=== PATIENT | female | born 1995 | race American Indian/Alaskan Native ===

== ENCOUNTER 2018-12-05 19:08 | Outpatient (CLI) | payer OTHER ==
[2018-12-05] MEDS ORDERED: LACTATED RINGERS 1,000 ML IV ONE (19:51)
[2018-12-05] MEDS ORDERED: ZOFRAN IV ONE (19:52)
[2018-12-05 20:22] LABS: Bilirubin,Urine NEG (Negative); Blood,Urine NEG (Negative); Color,Urine Yellow (Yellow); Mucus,Urine 3+ /HPF
[2018-12-05 21:56] VITALS: BP 117/71
[2018-12-05] MEDS ORDERED: VALTREX PO ONE (22:35)
== END 2018-12-05 22:25 | disposition home or self-care (01) ==
LOC: TRG 19:08
PROVIDERS: ATTEND Obstetrics & Gynecology
DX: O26.893 Other specified pregnancy related conditions, third trimester (principal); O21.8 Other vomiting complicating pregnancy; N89.8 Other specified noninflammatory disorders of vagina; M54.5 Low back pain; Z3A.31 31 weeks gestation of pregnancy
CPT/HCPCS: 81001; 87086; 87529; 96360; J2405; J7120

== ENCOUNTER 2021-01-28 13:04 | Outpatient (CLI) | payer OTHER ==
[2021-01-28] MEDS ORDERED: LACTATED RINGERS 1,000 ML IV ONE ×2 (14:07→15:08)
[2021-01-28 14:22] LABS: Bacteria,Urine 1+ /HPF (Negative); Bilirubin,Urine NEG (Negative); Blood,Urine NEG (Negative); Color,Urine Yellow (Yellow); Mucus,Urine FEW /HPF; Protein,Urine <15 mg/dL mg/dL (Negative); Urobilinogen,Urine < 2.0 mg/dL (<2.0)
[2021-01-28] MEDS ORDERED: LACTATED RINGERS 500 ML IV ONE (15:07)
[2021-01-28 15:54] VITALS: BP 102/64
[2021-01-28] MEDS ORDERED: TERBUTALINE 1 MG/1 ML INJ SUB-Q SCH (16:00)
--- NOTE | 2021-01-28 18:54 | Ultrasound Report ---
LIMITED OBSTETRICAL ULTRASOUND HISTORY: labor. FINDINGS: Limited obstetrical ultrasound was performed. A single viable intrauterine in the cephalic position has heart tones of 141 bpm. The placenta is anteriorly located. No placental separation is identified. IMPRESSION: 1. Viable intrauterine . 2. No complication identified. Signer Name: Fadi Oliveira MD Signed: 01/28/2021 6:49 PM Workstation Name: [id number]
== END 2021-01-28 17:37 | disposition home or self-care (01) ==
LOC: TRG 13:04 → APU 13:18 → TRG 17:37
PROVIDERS: ATTEND Obstetrics & Gynecology
DX: O26.892 Other specified pregnancy related conditions, second trimester (principal); R10.9 Unspecified abdominal pain; M54.9 Dorsalgia, unspecified; Z3A.26 26 weeks gestation of pregnancy
CPT/HCPCS: 59025; 76815; 81001; 96361; 96365; J0690; J7120; 96360

== ENCOUNTER 2021-04-15 08:25 | Inpatient (IN) | payer OTHER ==
[2021-04-15] MEDS ORDERED: LACTATED RINGERS 1,000 ML ONE ×2 (08:39→10:49)
--- NOTE | 2021-04-15 11:27 | Ultrasound Report ---
ULTRASOUND OBSTETRIC LIMITED ULTRASOUND BIOPHYSICAL PROFILE INDICATION / CLINICAL INFORMATION: wellbeing. TECHNIQUE: Transabdominal. COMPARISON: None available. FINDINGS: BREATHING MOVEMENT = 2 GROSS BODY MOVEMENT = 2 TONE = 2 QUALITATIVE AMNIOTIC FLUID VOLUME = 2 TOTAL BIOPHYSICAL SCORE = 8/8 HEART RATE (beats per minute): 137 AMNIOTIC FLUID INDEX (cm) = 6.7 (normal = 7-24 cm) PRESENTATION: Cephalic. ADDITIONAL FINDINGS: None. IMPRESSION: 1. Biophysical Score = 8/8 2. Mild oligohydramnios with amniotic fluid index measuring 6.7 cm. Largest single pocket measures 2. 8 cm. Signer Name: Davidson Batres MD Signed: 04/15/2021 11:22 AM Workstation Name: [id number]
[2021-04-15 11:29] LABS: Basophils % (Auto) 0.2 % (0.0-1.8); Eosinophils % (Auto) 0.2 % (0.0-4.3); Hematocrit 32.3 % (30.3-42.9); Lymphocytes # (Auto) 1.7 K/mm3 (1.2-5.4); Lymphocytes % (Auto) 31.9 % (13.4-35.0); Mean Corpuscular HGB Conc 31 % (30-34); Mean Corpuscular Volume 75 fl (79-97); Monocytes # (Auto) 0.6 K/mm3 (0.0-0.8); Monocytes % (Auto) 11.4 % (0.0-7.3); Platelet Count 259 K/mm3 (140-440); Red Blood Count 4.32 M/mm3 (3.65-5.03); Red Cell Distribution Width 19.2 % (13.2-15.2)
[2021-04-15] MEDS ORDERED: LOPERAMIDE 2 MG CAP PO PRN (13:48)
[2021-04-15] MEDS ORDERED: ePHEDrine SULFATE 50 MG/1 ML INJ IV PRN (13:48)
[2021-04-15] MEDS ORDERED: LIDOCAINE (2%) 20 MG/1 ML VIAL 20 ML MDV INFILTRATI ONE (13:48)
[2021-04-15] MEDS ORDERED: NalbUPHINE 10 MG/1 ML INJ IV PRN (13:48)
[2021-04-15] MEDS ORDERED: CARBOPROST TROMETHAMINE 250 MCG/1 ML INJ IM PRN (13:48)
[2021-04-15] MEDS ORDERED: METHYLERGONOVINE MALEATE 0.2 MG/ML VIAL IM PRN (13:48)
[2021-04-15] MEDS ORDERED: ONDANSETRON 4 MG/2 ML INJ IV PRN (13:48)
[2021-04-15] MEDS ORDERED: miSOPROStol 200 MCG TAB PR PRN (13:48)
[2021-04-15] MEDS ORDERED: TERBUTALINE 1 MG/1 ML INJ SUB-Q PRN (13:48)
[2021-04-15] MEDS ORDERED: PROMETHAZINE 25 MG TAB PO PRN (13:48)
[2021-04-15] MEDS ORDERED: OXYTOCIN 10 UNIT/1 ML INJ IM PRN (13:48)
[2021-04-15] MEDS ORDERED: ACETAMINOPHEN 325 MG TAB PO PRN ×2 (13:48→23:21)
[2021-04-15] MEDS ORDERED: fentaNYL 100 MCG/2 ML INJ IV PRN (13:48)
[2021-04-15] MEDS ORDERED: OXYTOCIN DRIP 30 UNITS/500 ML BAG IV SCH ×3 (14:00→23:45)
[2021-04-15] MEDS ORDERED: BUTORPHANOL 2 MG/1 ML INJ ONE (14:02)
--- NOTE | 2021-04-15 14:11 | History and Physical Report ---
History of Present Illness Date of examination: 04/15/21 Date of admission: 04/15/2021 Chief complaint: My Water broke at 0815 this morning History of present illness: States she had a uncomplicated course at [place] ( records requested). Past History Past Medical History: no pertinent history Past Surgical History: no surgical history Family/Genetic History: diabetes (Father), heart disease (uncle), hypertension (mother), cancer (Colon Ca: MGM) Social history: no significant social history, single - Obstetrical History Expected Date of Delivery: 04/25/21 (+) Actual Gestation: 38 Week(s) 4 Day(s) : 5 Para: 1 Hx # Term Pregnancies: 1 Induced : 3 Number of Living Children: 1 #1 Infant Gender: Female year: 2[age][birth year] Birthweight: 3.175 kg Method of Delivery: Vaginal Complications: none Medications and Allergies Allergies Allergy/AdvReac Type Severity Reaction Status Date / Time No Known Allergies Allergy Verified 01/28/21 14:06 Home Medications Medication Instructions Recorded Confirmed Last Taken Type Ibuprofen [Motrin] 600 mg PO Q8H PRN #60 tablet 02/28/15 Unknown Rx Ondansetron [Zofran Odt] 4 mg PO Q4H #20 tab.rapdis 02/28/15 Unknown Rx traMADoL [Ultram] 50 mg PO Q6HR PRN #14 tablet 02/28/15 Unknown Rx Acyclovir [Acyclovir Ointment] 1 applicatio TP 5XD #1 tube 12/05/18 Unknown Rx Valacyclovir HCl [Valtrex] 1,000 mg PO DAILY #5 tablet 12/05/18 Unknown Rx Active Meds: Active Medications Acetaminophen (Acetaminophen 325 Mg Tab) 650 mg PO Q4H PRN PRN Reason: Pain, Mild (1-3) Carboprost Tromethamine (Carboprost Tromethamine 250 Mcg/1 Ml Inj) 250 mcg IM ONCE PRN PRN Reason: Uterine Bleeding Ephedrine Sulfate (Ephedrine Sulfate 50 Mg/1 Ml Inj) 10 mg IV Q2M PRN PRN Reason: Hypotension Fentanyl (Fentanyl 100 Mcg/2 Ml Inj) 100 mcg IV Q2H PRN PRN Reason: Pain,Severe (7-10) LABOR PAIN Oxytocin/Sodium Chloride (Pitocin/Ns 30 Unit/500ml) 30 units in 500 mls @ 2 mls/hr IV TITR KWAME; Protocol Lactated Ringer's (Lactated Ringers) 1,000 mls @ 125 mls/hr IV DIRECT KWAME Oxytocin/Sodium Chloride (Pitocin/Ns 30 Unit/500ml) 30 units in 500 mls @ 40 mls/hr IV TITR KWAME; Protocol Ampicillin Sodium (Ampicillin/Ns 2 Gm/100 Ml) 2 gm in 100 mls @ 100 mls/hr IV ONCE ONE; Protocol Stop: 04/15/21 15:47 Lidocaine (Lidocaine (2%) 20 Mg/1 Ml Vial 20 Ml Mdv) 20 ml INFILTRATI ONCE ONE Stop: 04/15/21 13:49 Loperamide HCl (Loperamide 2 Mg Cap) 2 mg PO ONCE PRN PRN Reason: give with Hemabate Methylergonovine Maleate (Methylergonovine Maleate 0.2 Mg/Ml Vial) 0.2 mg IM ONCE PRN PRN Reason: Uterine Bleeding Mineral Oil (Mineral Oil 30 Ml Oral Liqd) 30 ml PO QHS PRN PRN Reason: Constipation Misoprostol (Misoprostol 200 Mcg Tab) 800 mcg TX ONCE PRN PRN Reason: Uterine Bleeding Nalbuphine HCl (Nalbuphine 10 Mg/1 Ml Inj) 10 mg IV Q2H PRN PRN Reason: Pain, Moderate (4-6) Ondansetron HCl (Ondansetron 4 Mg/2 Ml Inj) 4 mg IV Q8H PRN PRN Reason: Nausea And Vomiting Oxytocin (Oxytocin 10 Unit/1 Ml Inj) 10 unit IM ONCE PRN PRN Reason: Uterine Bleeding Promethazine HCl (Promethazine 25 Mg Tab) 25 mg PO Q6H PRN PRN Reason: Nausea And Vomiting Terbutaline Sulfate (Terbutaline 1 Mg/1 Ml Inj) 0.25 mg SUB-Q ONCE PRN PRN Reason: Hyperstimulation/Hypertonicity Review of Systems All systems: negative - Vital Signs Vital signs: Vital Signs Pulse Pulse Ox 78 99 04/15/21 08:52 04/15/21 08:52 Temp Pulse Resp BP Pulse Ox 98 F 80 20 113/73 99 04/15/21 09:42 04/15/21 12:40 04/15/21 09:42 04/15/21 10:44 04/15/21 12:40 - Physical Exam Breasts: Positive: normal Cardiovascular: Regular rate Lungs: Positive: Clear to auscultation, Normal air movement Abdomen: Positive: normal appearance, soft, normal bowel sounds Genitourinary (Female): Positive: normal external genitalia, normal perenium Vagina: Positive: normal moisture Uterus: Positive: enlarged Anus/Rectum: Positive: normal perianal skin - Obstetrical FHR: category 1 Uterine Contraction Monitor Mode: Internal Cervical Dilatation: 6 (No fluid observed upon exam or IUPC insertion) Cervical Effacement Percentage: 70 station: -2 Uterine Contraction Pattern: Regular Uterine Tone Measurement Phase: Resting Uterine Contraction Intensity: Moderate Results Result Diagrams: 04/15/21 11:00 Abnormal lab results 04/15/21 Range/Units 11:00 Hgb 10.0 L (10.1-14.3) gm/dl MCV 75 L (79-97) fl MCH 23 L (28-32) pg RDW 19.2 H (13.2-15.2) % [place] % (Auto) 11.4 H (0.0-7.3) % All other labs normal. Assessment and Plan A: IUP @ 38 4/7 Weeks Category I Tracing SROM GBS Negative P: Admit to L&D Per Routine Orders Prepare for Epidural Anesthesia IUPC Placed Pitocin Augmentation
[2021-04-15] MEDS ORDERED: SODIUM CHLORIDE 0.9% 1000 ML 1,000 ML ONE (14:29)
[2021-04-15] MEDS ORDERED: MINERAL OIL 30 ML ORAL LIQD PO PRN (14:48)
[2021-04-15] MEDS ORDERED: AMPICILLIN/NS 2 GM/100 ML 2 GM/100 ML BAG IV ONE (14:48)
[2021-04-15] MEDS ORDERED: METOCLOPRAMIDE 10 MG/2 ML INJ ONE (14:50)
[2021-04-15] MEDS ORDERED: BICITRA ORAL LIQD 30ML ONE (14:50)
[2021-04-15] MEDS ORDERED: ceFAZolin/Water 2 GM/20 ML 2 GM/20 ML SYRINGE IV ONE (14:51)
[2021-04-15] MEDS ORDERED: FAMOTIDINE 20 MG/2 ML INJ IV ONE (14:51)
--- NOTE | 2021-04-15 14:54 | Progress Note ---
Assessment and Plan A: IUP @ 38 4/7 Weeks Category II Tracing SROM GBS Negative P: Amnioinfusion Started Called Dr. Leija to bedside; recommends delivery by Prepare for Subjective - Subjective Date of service: 04/15/21 Interval history: States she had a uncomplicated course at [place] ( records requested). Patient reports: movement normal, contractions Objective - Vital Signs Vital Signs: Vital Signs - 12hr 04/15/21 04/15/21 04/15/21 08:52 08:53 08:57 Temperature Pulse Rate 78 76 76 Respiratory Rate Blood Pressure 118/79 O2 Sat by Pulse 99 100 Oximetry 04/15/21 04/15/21 04/15/21 09:02 09:07 09:12 Temperature Pulse Rate 77 79 71 Respiratory Rate Blood Pressure O2 Sat by Pulse 99 100 100 Oximetry 04/15/21 04/15/21 04/15/21 09:17 09:22 09:24 Temperature Pulse Rate 70 75 81 Respiratory Rate Blood Pressure 133/82 O2 Sat by Pulse 100 99 Oximetry 04/15/21 04/15/21 04/15/21 09:27 09:32 09:37 Temperature Pulse Rate 78 80 96 H Respiratory Rate Blood Pressure O2 Sat by Pulse 100 99 100 Oximetry 04/15/21 04/15/21 04/15/21 09:42 09:47 09:52 Temperature 98 F Pulse Rate 91 H 91 H 77 Respiratory 20 Rate Blood Pressure O2 Sat by Pulse 100 100 100 Oximetry 04/15/21 04/15/21 04/15/21 09:57 10:02 10:07 Temperature Pulse Rate 82 77 79 Respiratory Rate Blood Pressure O2 Sat by Pulse 99 100 100 Oximetry 04/15/21 04/15/21 04/15/21 10:12 10:17 10:44 Temperature Pulse Rate 75 81 86 Respiratory Rate Blood Pressure 113/73 O2 Sat by Pulse 100 99 Oximetry 04/15/21 04/15/21 04/15/21 11:51 12:13 12:18 Temperature Pulse Rate 84 83 70 Respiratory Rate Blood Pressure O2 Sat by Pulse 100 99 99 Oximetry 04/15/21 04/15/21 04/15/21 12:23 12:28 12:33 Temperature Pulse Rate 86 87 70 Respiratory Rate Blood Pressure O2 Sat by Pulse 99 99 99 Oximetry 04/15/21 04/15/21 04/15/21 12:40 14:21 14:26 Temperature Pulse Rate 80 72 68 Respiratory Rate Blood Pressure O2 Sat by Pulse 99 98 98 Oximetry 04/15/21 04/15/21 04/15/21 14:31 14:36 14:41 Temperature Pulse Rate 61 85 88 Respiratory Rate Blood Pressure O2 Sat by Pulse 100 100 100 Oximetry 04/15/21 14:46 Temperature Pulse Rate 81 Respiratory Rate Blood Pressure O2 Sat by Pulse 100 Oximetry - Exam Breasts: normal Cardiovascular: Regular rate Lungs: Normal air movement Abdomen: Present: normal appearance, soft Uterus: Present: normal, firm, fundal height above umbilicus FHR: category 2 FHR comments: FHR: 130s, moderate varabilty, repetitve deep varabile decels (some down to ther 60s lasting one minute), -accels Uterine Contraction Monitor Mode: Internal Cervical Dilatation: 7 Cervical Effacement Percentage: 80 station: -2 Uterine Contraction Pattern: Regular Uterine Tone Measurement Phase: Resting Uterine Contraction Intensity: Moderate Extremities: normal - Labs Labs: Abnormal Labs 04/15/21 11:00 Hgb 10.0 L MCV 75 L MCH 23 L RDW 19.2 H [facility] % (Auto) 11.4 H Laboratory Results - last 24 hr 04/15/21 04/15/21 04/15/21 11:00 11:00 Unknown WBC 5.3 RBC 4.32 Hgb 10.0 L Hct 32.3 MCV 75 L MCH 23 L MCHC 31 RDW 19.2 H Plt Count 259 Lymph % (Auto) 31.9 [facility] % (Auto) 11.4 H Eos % (Auto) 0.2 Baso % (Auto) 0.2 Lymph # (Auto) 1.7 [facility] # (Auto) 0.6 Eos # (Auto) 0.0 Baso # (Auto) 0.0 Seg Neutrophils % 56.3 Seg Neutrophils # 3.0 Membranes Rupture Negative Syphilis IgG Antibody Nonreactive Blood Type O POSITIVE Antibody Screen Negative
--- NOTE | 2021-04-15 14:59 | Anesthesia Consultation ---
Anesthesia Consult and Med Hx - Airway Anesthetic Teeth Evaluation: Good ROM Head & Neck: Adequate Mental/Hyoid Distance: Adequate Mallampati Class: Class II Intubation Access Assessment: Probably Good - Pulmonary Exam CTA: Yes - Cardiac Exam Cardiac Exam: RRR - Pre-Operative Health Status ASA Pre-Surgery Classification: ASA2 Proposed Anesthetic Plan: Spinal Nerve Block: Bilateral TAP block - Pulmonary Hx Smoking: No Hx Asthma: No Hx Respiratory Symptoms: No Hx Sleep Apnea: No - Cardiovascular System Hx Hypertension: No Hx Heart Attack/AMI: No - Central Nervous System Hx Neuromuscular Disorder: No Hx Seizures: No Hx Psychiatric Problems: No - Gastrointestinal Hx Ulcer: No Hx Gastroesophageal Reflux Disease: No - Endocrine Hx Renal Disease: No Hx Liver Disease: No Hx Non-Insulin Dependent Diabetes: No Hx Thyroid Disease: No Hx Hypothyroidism: No Hx Hyperthyroidism: No - Hematic Hx Anemia: Yes Hx Sickle Cell Disease: No - Other Systems Hx Alcohol Use: No Hx Substance Use: No Hx Cancer: No Hx Obesity: No - Additional Comments Anesthesia Medical History Comments: No hx of anesthetic complications
--- NOTE | 2021-04-15 15:00 | Anesthesia Day of Surgery ---
Anesthesia Day of Surgery - Day of Surgery Patient Examined: Yes Patient H&P Reviewed: Yes Patient is NPO: Yes
[2021-04-15] MEDS ORDERED: ceFAZolin/STERILE WATER 2 GM/20 ML SYRINGE IV ONE (15:25)
[2021-04-15] MEDS ORDERED: ONDANSETRON 4 MG/2 ML INJ ONE (15:28)
[2021-04-15] MEDS ORDERED: dexAMETHasone 20 MG/5 ML VIAL ONE (15:28)
[2021-04-15] MEDS ORDERED: LIDOCAINE MPF (2%) 20 MG/1 ML VIAL 5 ML ONE (15:28)
[2021-04-15] MEDS ORDERED: BUPIVACAINE/PF (0.5%) 5 MG/1 ML 30 ML VIAL INFILTRATI ONE (15:28)
[2021-04-15] MEDS ORDERED: PHENYLEPHRINE/NS 1,000 MCG/10 ML SYRINGE (OR USE) IV ONE (15:29)
--- NOTE | 2021-04-15 15:35 | Progress Note ---
Spinal Anesthesia Block - Spinal Anesthesia Block Start Time: 15:12 Stop Time: 15:27 Performed by:: ABRAHAM GRAYSON (schuyler/ AUDREY Castillo) Procedure: Spinal anesthesia block is being performed for [c/s]. H&P, labs have been reviewed. Patient's questions and concerns have been answered. Informed consent has been performed. Timeout has was performed. Patient in sitting position on side of bed. Sterile prep and drape was performed. 3 mL 1% lidocaine skin wheal at L [3]-L [4]. Needle introducer advanced. 25-gauge spinal needle advanced, [+] CSF [-] blood. [marcaine 10mg and precedex 5mcg] Spinal dose was given. All needles removed. Patient tolerated procedure well.
[2021-04-15] MEDS ORDERED: WATER FOR IRRIG STERILE 1,500 ML BOTTLE IR ONE (15:52)
[2021-04-15] MEDS ORDERED: SODIUM CHLORIDE 0.9% IRR 1,500 ML BOTTLE IR ONE (15:52)
[2021-04-15] MEDS ORDERED: ePHEDrine SULFATE 50 MG/1 ML INJ ONE (17:11)
[2021-04-15] MEDS ORDERED: KETOROLAC 30 MG/1 ML INJ ONE (17:11)
[2021-04-15] MEDS ORDERED: OXYTOCIN 10 UNIT/1 ML INJ ONE (17:11)
[2021-04-15] MEDS ORDERED: HETASTARCH 6% 500 ML IV ONE (17:11)
--- NOTE | 2021-04-15 17:58 | Procedure Note ---
OB Delivery Note - Delivery Date of Delivery: 04/15/21 Surgeon: LUBNA RUSHING Estimated blood loss: other (853cc by QBL) - Section Preop diagnosis: nonreassuring FHR tracing (remote from delivery at 7cm) Postop diagnosis: same section procedure: primary low transverse Disposition: floor Complications: none Narrative: Date: 04/15/21 Surgeon: Lubna Rushing MD Preop Dx: IUP at 38.4wks, non-reassuring FHR remote from labor Postop Dx: same Procedure : Primary Low transverse section Anesthesia: Spinal Intake: 1000cc crystalloids Output: 300cc clear urine EBL: 853cc After the risks, benefits and alternatives of procedure discussed, patient signed consents and was taken to the operating room. Pt was given spinal anesthesia. After same was adequate, patient was prepped and draped in the usual sterile fashion. Bansal catheter in place and draining clear urine. Pt was given prophylactic antibiotic per protocol and time out was done. Pfannenstiel skin incision was made and taken sharply to the fascia and the incision extended using electrocautery. Superior edge of the fascia was grasped with alejandro clamps and the rectus muscle using blunt dissection and also using electrocautery. Lower portion of the fascia also sharply. Rectus muscle in the midline and Peritoneal cavity entered sharply and extended with good visualization of the bladder. Casey retractor placed without difficulty. The bladder flap was created sharply using metzenbaum scissors. Lower uterine segment then entered transversely and amniotic sac entered using allys clamps. Uterine incision extended using bandage scissors. Infant delivered, bulb suctioned, cord clamped and baby handed to waiting pediatricians. Placenta then delivered completely and uterine cavity cleared of all clots and debri. The uterus was not exteriorized and closed in 2 layers us ing 0-vicryl suture in a running locked fashion and then an additional layer of imbrication suture. Pt had large lower uterine sinuses that were made hemostatic with multiple figure of 8sutures. Surgicel powder placed. Excellent hemostasis noted. The gutters were cleared of clots and debri and anterior peritoneum closed using 3-0 vicryl suture and rectus muscle reapproximated using 0-vicryl suture in a running fashion. Rectus fascia closed with 0-vicryl suture in a continuous fashion and subcutaneous tissue copiously irrigated with normal saline and re- approximated using 3-0 vicryl suture. Excellent hemostasis remains. The skin was closed with 4-0 monocryl suture subcutaneously and steristrips placed with pressure dressing. Sponge, lap, instrument and needle counts x3 were normal. Patient tolerated the procedure well and was taken to recovery room stable. Findings: Viable male , APGARS 9/9 and weight 2980g. Normal uterus with extensive engorged vessels, normal tubes and ovaries. - A at 1 minute: 9 at 5 minutes: 9 (wt 2980g) Gender: Male
--- NOTE | 2021-04-15 20:20 | Post Anesthesia Evaluation ---
- Post Anesthesia Evaluation Patient Participated: Yes Airway Patent: Yes Stable Respiratory Function: Yes Nausea/Vomiting: No Temp > 96.8F: Yes Pain Manageable: Yes Adequeate Hydration: Yes Anesthesia Complications: No Block Receding Appropriately: Yes Patient on Ventilator: No
[2021-04-15] MEDS: LACTATED RINGERS 1,000 ML IV SCH (22:33)
[2021-04-15] MEDS ORDERED: WITCH HAZEL/ GLYCERIN PAD TP PRN (23:21)
[2021-04-15] MEDS ORDERED: LANOLIN/ZINC/DIMETHICONE (LANSINOH) 7 GM TP PRN (23:21)
[2021-04-15] MEDS ORDERED: NALOXONE 0.4 MG/1 ML INJ IV PRN (23:21)
[2021-04-16] MEDS: MORPHINE 4 MG/1 ML INJ IV PRN ×3 (00:16→10:31)
[2021-04-16] MEDS: LACTATED RINGERS 1,000 ML IV SCH (03:46)
[2021-04-16 06:14] LABS: Basophils % (Auto) 0.1 % (0.0-1.8); Hematocrit 26.9 % (30.3-42.9); Hemoglobin 8.3 gm/dl (10.1-14.3); Lymphocytes # (Auto) 1.1 K/mm3 (1.2-5.4); Lymphocytes % (Auto) 9.1 % (13.4-35.0); Mean Corpuscular HGB Conc 31 % (30-34); Mean Corpuscular Volume 74 fl (79-97); Monocytes # (Auto) 1.3 K/mm3 (0.0-0.8); Monocytes % (Auto) 10.6 % (0.0-7.3); Platelet Count 246 K/mm3 (140-440); Red Blood Count 3.63 M/mm3 (3.65-5.03); Red Cell Distribution Width 18.8 % (13.2-15.2)
[2021-04-16] MEDS: HYDROcodone/ACETAMINOPHEN 5-325 MG TAB PO PRN ×3 (07:21→20:30)
--- NOTE | 2021-04-16 12:52 | Progress Note ---
Assessment and Plan A: POD #1 Asymptomatic Anemia P: Follow Routine PostOp Orders Ferrous Sulfate 325mg PO BID Subjective - Subjective Date of service: 04/16/21 Interval history: States she had a uncomplicated course at [place] ( records req uested). Patient reports: appetite normal, voiding normally, pain well controlled, flatus, ambulating normally : doing well, bottle feeding Objective - Vital Signs Latest vital signs: Vital Signs Temp Pulse Resp BP Pulse Ox Pulse Ox 04/16/21 09:00 99 04/16/21 07:39 98.0 F 69 18 104/64 100 04/16/21 07:21 18 04/16/21 04:12 98.0 F 72 18 115/68 96 04/16/21 03:46 18 04/16/21 00:22 98.0 F 71 18 138/75 97 04/16/21 00:16 19 04/15/21 19:29 99 04/15/21 18:45 98.6 F 62 16 138/75 100 04/15/21 18:30 64 15 102/70 99 04/15/21 18:15 72 11 L 124/75 100 04/15/21 18:05 65 16 118/68 100 04/15/21 17:50 94 H 14 143/83 100 04/15/21 17:45 94 H 14 129/78 100 04/15/21 17:40 97.5 F L 85 10 L 160/82 100 04/15/21 14:51 94 H 100 04/15/21 14:46 81 100 04/15/21 14:41 88 100 04/15/21 14:36 85 100 04/15/21 14:31 61 100 04/15/21 14:26 68 98 04/15/21 14:21 72 98 Intake and Output 04/15/21 04/16/21 04/16/21 22:59 06:59 14:59 Intake Total 1900 1452.083 240 Output Total 1100 2800 500 Balance 800 -1347.917 -260 Intake: IV 1900 752.083 Lactated Ringers 1,000 ml 652.083 @ 125 mls/hr IV DIRECT KWAME Rx#:[id number] ceFAZolin 2 GM In NaCl 0. 100 9% 100 ml @ 200 mls/hr IV Q8H KWAME Rx#:[id number] Oral 400 240 Intake, Free Water 300 Output: Urine 1100 2800 500 Indwelling Catheter 2800 Uretheral (Bansal) 300 Void 500 Other: Total, Intake Amount 200 240 Total, Output Amount 400 500 # Voids Indwelling Catheter 1,000 - Exam Breasts: Present: normal Cardiovascular: Present: Regular rate Lungs: Present: Clear to auscultation, Normal air movement Abdomen: Present: normal appearance, soft, normal bowel sounds Uterus: Present: normal, firm, fundal height below umbilicus Extremities: Present: normal Incision: Present: dry, dressed - Labs Labs: Abnormal lab results 04/16/21 Range/Units 05:39 WBC 12.6 H (4.5-11.0) K/mm3 RBC 3.63 L (3.65-5.03) M/mm3 Hgb 8.3 L (10.1-14.3) gm/dl Hct 26.9 L (30.3-42.9) % MCV 74 L (79-97) fl MCH 23 L (28-32) pg RDW 18.8 H (13.2-15.2) % Lymph % (Auto) 9.1 L (13.4-35.0) % [place] % (Auto) 10.6 H (0.0-7.3) % Lymph # (Auto) 1.1 L (1.2-5.4) K/mm3 [place] # (Auto) 1.3 H (0.0-0.8) K/mm3 Seg Neutrophils % 80.2 H (40.0-70.0) % Seg Neutrophils # 10.1 H (1.8-7.7) K/mm3
[2021-04-16] MEDS: IBUPROFEN 600 MG TAB PO PRN ×2 (15:26→23:26)
[2021-04-16] MEDS: FERROUS SULFATE 325 MG TAB PO SCH (23:26)
[2021-04-16] MEDS: ASCORBIC ACID 500 MG TAB PO SCH (23:26)
[2021-04-17] MEDS: HYDROcodone/ACETAMINOPHEN 5-325 MG TAB PO PRN ×3 (02:33→20:58)
--- NOTE | 2021-04-17 10:06 | Progress Note ---
Assessment and Plan A: /postop day 1 S/P primary LTCS. Anemia. Coronavirus positive. P: Continue iron supplementation. Coronavirus precautions. Chest x-ray. Routine /postop care. Subjective - Subjective Date of service: 04/17/21 Principal diagnosis: /postop day 2 S/P LTCS Interval history: Mild cough and nasal congestion. Denies fever or chills, body aches, chest pain, shortness of breath, N/V/D. Patient reports: appetite normal, voiding normally, pain well controlled, flatus, ambulating normally, no dizzy ambulation, no nauseated Serena: bottle feeding Objective - Vital Signs Latest vital signs: Vital Signs Temp Pulse Resp BP Pulse Ox Pulse Ox 04/17/21 09:16 98.2 F 75 18 120/80 100 04/17/21 02:30 98.1 F 69 16 115/70 99 04/16/21 20:30 99 04/16/21 16:15 98.2 F 73 18 134/77 100 04/16/21 11:55 98.0 F 70 18 130/79 97 Intake and Output 04/16/21 04/17/21 04/17/21 23:59 07:59 15:59 Intake Total 660 260 240 Output Total 300 Balance 360 260 240 Intake: Oral 360 240 Intake, Free Water 300 260 Output: Urine 300 Void 300 Other: Total, Intake Amount 240 240 Total, Output Amount 200 # Voids Indwelling Catheter 3 Void 1 2 1 - Exam Cardiovascular: Present: Regular rate, No murmurs Lungs: Present: Clear to auscultation Abdomen: Present: normal appearance, soft, normal bowel sounds. Absent: distention, tenderness, guarding, rigidity Uterus: Present: normal, firm, fundal height below umbilicus. Absent: tenderness Extremities: Absent: tenderness Incision: Present: dry, dressed - Labs Labs: Abnormal lab results 04/16/21 Range/Units 10:20 Coronavirus (PCR) Positive A (Negative)
--- NOTE | 2021-04-17 10:58 | XRay Report ---
CHEST 1 VIEW 04/17/2021 10:15 AM INDICATION / CLINICAL INFORMATION: cough, coronavirus positive. COMPARISON: None available. FINDINGS: SUPPORT DEVICES: None. HEART / MEDIASTINUM: No significant abnormality. LUNGS / PLEURA: No significant pulmonary or pleural abnormality. No pneumothorax. ADDITIONAL FINDINGS: No significant additional findings. IMPRESSION: 1. No acute findings. Signer Name: Jg Caldwell DO Signed: 04/17/2021 10:54 AM Workstation Name: [id number]
[2021-04-17] MEDS: FERROUS SULFATE 325 MG TAB PO SCH ×3 (11:03→22:16)
[2021-04-17] MEDS: ASCORBIC ACID 500 MG TAB PO SCH ×2 (11:03→22:16)
[2021-04-18] MEDS: IBUPROFEN 600 MG TAB PO PRN ×2 (01:00→12:54)
[2021-04-18] MEDS: HYDROcodone/ACETAMINOPHEN 5-325 MG TAB PO PRN (06:00)
--- NOTE | 2021-04-18 07:05 | Progress Note ---
Assessment and Plan A: /postop day 3 S/P primary LTCS Anemia. Coronavirus positive. P: Discharge patient home today. Discussed with patient /postop discharge instructions and warning signs. Advised patient re: care of incision and activity restrictions. Advised patient to continue taking her vitamin and iron supplements at home. Advised patient to avoid intercourse, lifting, housework, driving, stair climbing, and tub baths (patient may take showers). Advised patient to follow up at her regular [facility] doctor in 1 week. Advised patient to self isolate at home to avoid spreading coronavirus. Patient voiced understanding of instructions. Subjective - Subjective Date of service: 04/18/21 Principal diagnosis: /postop day 3 S/P LTCS Interval history: Patient desires discharge home today. Chest x-ray negative. Patient reports: appetite normal, voiding normally, pain well controlled, flatus, ambulating normally, no dizzy ambulation, no nauseated : doing well Objective - Vital Signs Latest vital signs: Vital Signs Temp Pulse Resp BP Pulse Ox Pulse Ox 04/18/21 06:00 18 04/18/21 02:00 18 04/18/21 01:00 18 04/18/21 00:13 98.2 F 72 20 117/81 99 04/17/21 21:58 18 04/17/21 20:58 18 04/17/21 20:00 98 04/17/21 15:57 98.5 F 68 18 132/84 98 04/17/21 09:16 98.2 F 75 18 120/80 100 04/17/21 08:00 99 Intake and Output 04/17/21 04/17/21 04/18/21 15:59 23:59 07:59 Intake Total 600 240 Balance 600 240 Intake: Oral 600 240 Other: Total, Intake Amount 360 240 # Voids Void 2 1 - Exam Cardiovascular: Present: Regular rate, No murmurs Lungs: Present: Clear to auscultation Abdomen: Present: normal appearance, soft, normal bowel sounds. Absent: distention, tenderness, guarding, rigidity Uterus: Present: normal, firm, fundal height below umbilicus. Absent: bogginess, tenderness Extremities: Present: normal, edema (mild pedal edema bilaterally). Absent: tenderness Incision: Present: dry, intact
--- NOTE | 2021-04-18 07:09 | Discharge Summary ---
Providers - Providers Date of Admission: 04/15/21 15:24 Date of discharge: 04/18/21 Attending physician: BOY RUSHING Primary care physician: MORENITA CANTU MD Hospitalization Reason for admission: active labor Delivery: Procedure: primary low transverse Incision: dry, intact complications: other (coronavirus positive) Discharge diagnosis: IUP at term delivered baby: male Pertinent studies: Labs Hospital course: Stable hospital course Condition at discharge: Good Disposition: 01 HOME / SELF CARE / HOMELESS - Discharge Diagnoses (1) Term delivered Status: Acute (2) Anemia Status: Acute Plan - Discharge Medications Prescriptions: Ibuprofen [Motrin] 800 mg PO Q8HR PRN 21 Days #40 tablet PRN Reason: Pain, Moderate (4-6) oxyCODONE /ACETAMINOPHEN [Percocet 5/325] 1 tab PO Q4HR PRN 21 Days #30 tab PRN Reason: Pain , Severe (7-10) - Provider Discharge Summary Activity: routine, no sex for 6 weeks, no heavy lifting 4 weeks, no strenuous exercise Diet: routine Instructions: routine Additional instructions: Continue taking your vitamin and iron supplements at home. Self isolate at home for 2 weeks. Follow up with your [facility] at [place] in 1 week. Call your doctor immediately for: * Fever > 100.5 * Heavy vaginal bleeding ( >1 pad per hour) * Severe persistent headache * Shortness of breath * Reddened, hot, painful area to leg or breast * Drainage or odor from incision. * Keep incision clean and dry at all times and follow doctor's instructions regarding bathing/showering - Follow up plan Follow up: PRIMARY CAREMD [Primary Care Provider] - 7 Days
[2021-04-18 09:51] VITALS: BP 120/77
[2021-04-18] MEDS: FERROUS SULFATE 325 MG TAB PO SCH (11:20)
[2021-04-18] MEDS: ASCORBIC ACID 500 MG TAB PO SCH (11:20)
== END 2021-04-18 13:15 | disposition home or self-care (01) | DRG 786 ==
LOC: TRG 08:25 → APU 08:28 → LD 10:33 → TRG 15:23 → LD 15:24 → APU 15:30 → OB 19:40
PROVIDERS: ADMIT Obstetrics & Gynecology; ATTEND Obstetrics & Gynecology
PROC: 10D00Z1 Extraction of Products of Conception, Low, Open Approach (ICD-10-PCS; principal; 2021-04-15)
DX: O98.52 Other viral diseases complicating childbirth (principal); U07.1 COVID-19; O41.03X0 Oligohydramnios, third trimester, not applicable or unspecified; Z3A.38 38 weeks gestation of pregnancy; Z37.0 Single live birth; Z83.3 Family history of diabetes mellitus; Z82.49 Family history of ischemic heart disease and other diseases of the circulatory system; Z80.9 Family history of malignant neoplasm, unspecified; Z20.822 Contact with and (suspected) exposure to COVID-19; O76 Abnormality in fetal heart rate and rhythm complicating labor and delivery; O90.81 Anemia of the puerperium; O69.81X0 Labor and delivery complicated by cord around neck, without compression, not applicable or unspecified
CPT/HCPCS: 36415; 71045; 76815; 76819; 84112; 85025; 86592; 86706; 86762; 86850; 86900; 86901; 87806; 99211; G0378; J3490; J7121; Q0177; G0463; J0595; J0690; J1100; J1885; J2210; J2270; J2370; J2405; J2590; J2765; J3105; J7120; U0003